=== PATIENT | female | born 1960 | race Caucasian/White ===

== ENCOUNTER 2024-05-08 16:16 | Emergency (ER) | payer MEDICARE, SELFPAY ==
[2024-05-08 16:30] VITALS: BP 152/114; PULSE 100; RESP 16; TEMP 36.4; O2SAT 90
--- NOTE | 2024-05-08 16:56 | ED_ITS ---
HPI - General Adult General Chief complaint: Upper Respiratory Infection Stated complaint: SOB,right shoulder,weak Time Seen by Provider: 05/08/24 16:43 Source: patient and RN notes reviewed Mode of arrival: ambulatory Limitations: no limitations History of Present Illness HPI narrative: Patient presents today complaining of a 2 week history of cough, shortness of breath that has been increasing since onset, fatigue, weakness, bilateral lower leg swelling. States a friend gave her a Z-Ruben a few weeks ago that she took without relief of symptoms. States, I'm surprised by oxygen isn't 65% . Denies fever. She has also tried some ibuprofen without relief. She quit smoking 1 month ago after smoking for many years. Patient denies history of COPD, CHF, or any chronic illnesses. Review of Systems Review of Systems: CONSTITUTIONAL: Denies body aches, fever, chills, or sweats.+ fatigue, generalized weakness EYES: Denies visual changes, redness, or discharge. ENT: Denies rhinorrhea, congestion, sore throat, or otalgia. CARDIOVASCULAR: Denies chest pain, palpitations, or edema. RESPIRATORY:+ cough, shortness of breath GASTROINTESTINAL: Denies abdominal pain, nausea, vomiting, or diarrhea. GENITOURINARY: Denies dysuria or hematuria. SKIN: Denies rash, itching, or wounds. MUSCULOSKELETAL: Denies back pain, joint pain, or myalgia.+ bilateral leg swelling NEUROLOGIC: Denies headache, numbness, tingling. PSYCH: Denies depression or anxiety. PMFSH Comments At time of signature, I have reviewed and agree with nursing past medical, surgical, social and family history unless otherwise noted. Please see nursing chart for further information. There is no relevant family history pertinent to the presenting complaint Exam Narrative: GENERAL: Acute on chronically-appearing, and in no acute distress. HEAD: Normocephalic, atraumatic. EYES: EOMI. No redness or drainage. Conjunctivae normal. ENT: Mucous membranes pink and moist. NECK: Normal AROM. CHEST: No respiratory distress. Diminished in the bilateral bases. HEART: Irregularly irregular. No murmur appreciated. Normal peripheral pulses. MUSCULOSKELETAL: No bony tenderness. EXTREMITIES: Bilateral lower legs and feet have 2+ pitting edema. Distal sensation intact. Capillary refill normal. Pedal pulses normal. SKIN: Warm, dry, no rash. Capillary refill normal. Normal skin turgor. NEURO: No focal deficits. Alert and oriented x3. Gait unsteady. PSYCH: Normal affect. No signs of depression or anxiety. Course Course Level of Care: Express Care Visit Vital Signs Vital signs: Vital Signs Temperature 97.6 F 05/08/24 16:30 Pulse Rate 100 05/08/24 16:30 Respiratory Rate 16 05/08/24 16:30 Blood Pressure 152/114 H 05/08/24 16:30 Pulse Oximetry 90 05/08/24 16:30 Oxygen Delivery Room Air 05/08/24 16:30 Temperature 97.6 F 05/08/24 16:30 Pulse Rate 100 05/08/24 16:30 Respiratory Rate 16 05/08/24 16:30 Blood Pressure 152/114 H 05/08/24 16:30 Pulse Oximetry 90 05/08/24 16:30 Oxygen Delivery Room Air 05/08/24 16:30 Reviewed. Patient denies history of hypertension Medical Decision Making MDM Narrative Medical decision making narrative: Patient refuses ER transfer at this time against medical advice. She is A&O x4, and does not seem under the influence of drugs or alcohol, is able to make her own medical decisions. She understands the risks of refusing, up to and including , and the benefits of ER transfer. Differential Diagnosis Differential Diagnosis: CHF, AFib, pneumonia, PE Vital Signs Vital Signs: Vital Signs Temperature 97.6 F 05/08/24 16:30 Pulse Rate 100 05/08/24 16:30 Respiratory Rate 16 05/08/24 16:30 Blood Pressure 152/114 H 05/08/24 16:30 Pulse Oximetry 05/08/24 16:30 Oxygen Delivery Room Air 05/08/24 16:30 Temperature 97.6 F 05/08/24 16:30 Pulse Rate 100 05/08/24 16:30 Respiratory Rate 16 05/08/24 16:30 Blood Pressure 152/114 H 05/08/24 16:30 Pulse Oximetry 05/08/24 16:30 Oxygen Delivery Room Air 05/08/24 16:30 Critical Care Time Critical Care Time Critical Care Time: No Discharge Plan Discharge Clinical Impression: Shortness of breath, Irregular heart beat, Localized swelling of both lower legs, Generalized weakness, Hypoxia Patient Disposition: Left Against Medical Advice Condition: Serious Additional Instructions: You have declined transfer to the ER today against medical advice. If you change your mind, please proceed immediately for further evaluation. Patient Language: [place] Follow-up/Referrals: Gabriel Carson MD [Primary Care Provider] - Time of Disposition: 16:56
== END 2024-05-08 16:55 | disposition left against medical advice (07) ==
PROVIDERS: Emergency Provider Nurse Practitioner; PCP Family Medicine Adolescent Medicine
DX: R06.02 Shortness of breath (principal); I49.9 Cardiac arrhythmia, unspecified; R22.43 Localized swelling, mass and lump, lower limb, bilateral; R53.1 Weakness; R09.02 Hypoxemia; Z87.891 Personal history of nicotine dependence
CPT/HCPCS: 99211; G0463